=== PATIENT | female | born 1990 | race Caucasian/White ===

== ENCOUNTER 2019-12-13 14:36 | Emergency (ER) | payer OTHER ==
[~2019-12-13] VITALS: Ht 157.5 cm; Wt 59.0 kg
[2019-12-13 14:51] VITALS: BP 113/79
[2019-12-13] MEDS ORDERED: ERYT30GE2 TP (16:13)
[2019-12-13] MEDS ORDERED: DOXY100T PO (16:13)
--- NOTE | 2019-12-13 16:13 | PHYS DOC ---
Past History Past Medical History: No Pertinent History Past Surgical History: Appendectomy, Alcohol Use: None Drug Use: None Adult General Chief Complaint Chief Complaint: EYE PROBLEMS HPI HPI Patient is a 29 year old F who presents with right eye redness and drainage. She states that she did receive anabiotic eyedrops 2 weeks ago. Her symptoms improved but then recurred and are worse now than previously. She states that her vision is normal. She also has redness in the skin on her face around her eye. She feels that her eye lid is swelling. She denies fever sweats or chills. She denies pain with eye movement. She is not a contact lens wearer. Review of Systems Review of Systems Constitutional: Denies fever or chills [] Eyes: Negative except history of present illness HENT: Denies nasal congestion or sore throat [] Respiratory: Denies cough or shortness of breath [] Cardiovascular: No additional information not addressed in HPI [] GI: Denies abdominal pain, nausea, vomiting, bloody stools or diarrhea [] : Denies dysuria or hematuria [] Musculoskeletal: Denies back pain or joint pain [] Integument: Denies rash or skin lesions [] Neurologic: Denies headache, focal weakness or sensory changes [] Endocrine: Denies polyuria or polydipsia [] All other systems were reviewed and found to be within normal limits, except as documented in this note. Family History Family History No pertinent family medical history was reported Current Medications Current Medications Current medications were reviewed. Allergies Allergies Allergies Coded Allergies Type Severity Reaction Last Updated Verified No Known Drug Allergies 12/13/19 No Physical Exam Physical Exam Constitutional: Well developed, well nourished, no acute distress, non-toxic appearance. [] HENT: Normocephalic, atraumatic, bilateral external ears normal, oropharynx moist, no oral exudates, nose normal. [] Eyes: PERRLA, EOMI, no discharge. Right eye erythema with surrounding periorbital edema and erythema Neck: Normal range of motion, no tenderness, supple, no stridor. [] Cardiovascular:Heart rate regular rhythm, Lungs & Thorax: Bilateral breath sounds clear to auscultation [] Abdomen: Bowel sounds normal, soft, no tenderness, no masses, no pulsatile masses. [] Skin: Warm, dry, no erythema, Extremities: No tenderness, no cyanosis, no clubbing, ROM intact, no edema. [] Neurologic: Alert and oriented X 3, normal motor function, normal sensory function, no focal deficits noted. [] Psychologic: Affect normal, judgement normal, mood normal. [] Current Patient Data Vital Signs Vital Signs Date Time Temp Pulse Resp B/P (MAP) Pulse Ox O2 Delivery O2 Flow Rate FiO2 12/13/19 14:51 98.2 90 22 100 Room Air EKG EKG [] Radiology/Procedures Radiology/Procedures [] Course & Med Decision Making Course & Med Decision Making Pertinent Labs and Imaging studies reviewed. (See chart for details) Her vision is normal. She has no pain with movement of her eye. It is unusual t hat she wouldn't improve with antibiotic eyedrops. It's not known which antibiotics were provided. Erythromycin ointment was given as a prescription. She was strongly advised to follow-up with ophthalmology for further management. Dragon Disclaimer Dragon Disclaimer This electronic medical record was generated, in whole or in part, using a voice recognition dictation system. Departure Departure: Impression: Primary Impression: Conjunctivitis Additional Impression: Periorbital cellulitis of right eye Disposition: HOME, SELF-CARE Condition: STABLE Referrals: PCPANNIA (PCP) Patient Instructions: Bacterial Conjunctivitis, Periorbital Cellulitis Additional Instructions: Makeda was seen for right eye pain and redness around her right eye. No emergency medical condition was found on history or physical exam. Her symptoms are most consistent with a pinkeye or conjunctivitis with associated periorbital cellulitis. Periorbital cellulitis is a skin infection around the eye. She was given antibiotics ointment for the pinkeye and oral antibiotics for the cellulitis. She was advised to return to the emergency room if she develops new or worsening symptoms. 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 Scripts Doxycycline Hyclate (DOXYCYCLINE HYCLATE) 100 Mg Tablet 1 TAB PO BID for cellultitis for 10 Days, #20 TAB Prov: TARA QIU MD 12/13/19 Erythromycin Base/Ethanol (ERYTHROMYCIN 2% GEL) 30 Gm Gel..gram. 1 SAMSON TP BID for conjunctivitis for 14 Days, #60 GM 0 Refills Prov: TARA QIU MD 12/13/19 Problem Qualifiers Primary Impression: Conjunctivitis Conjunctivitis type: other mucopurulent Laterality: right Qualified Codes: H10.021 - Other mucopurulent conjunctivitis, right eye TARA QIU MD Dec 13, 2019 16:13
== END 2019-12-13 16:18 | disposition home or self-care (01) ==
LOC: ER 14:36
DX: H10.31 Unspecified acute conjunctivitis, right eye (principal); H05.011 Cellulitis of right orbit
CPT/HCPCS: 99283